=== PATIENT | female | born 1965 | race Caucasian/White ===

== ENCOUNTER → 2017-08-04 | Day surgery (SDC) | payer OTHER ==
[~2017-08-04] MED LIST: ACETAMINOPHEN 1000 MG/100 ML IV ONE; BUPIVACAINE HCL 0.5% INJ 30 ML VIAL INJ ONE; CEFAZOLIN SOD 2 GM/D5W 50ML 50 ML IV ONE; DEXAMETHASONE SOD PHOS INJ 4 MG/ML VIAL ONE; FENTANYL CITRATE/PF 100MCG/2 ML INJ ONE; KETOROLAC TROMETHAMINE 30 MG/ML VIAL ONE; LIDOCAINE HCL 2% LOCAL INJ 5 ML SDV VIAL INJ ONE; METHOCARBAMOL750 MG PO; METOPROLOL SUCC25 MG PO; MIDAZOLAM HCL 2 MG/2 ML VIAL ONE; NEOSTIGMINE 1 MG/ML 10ML VIAL ONE; ONDANSETRON HCL INJ 2 MG/ML VIAL ONE; PROGESTERONE100 MG PO; PROPOFOL IV EMULSION 10 MG/ML 20 ML VIAL ONE; SEVOFLURANE INHAL SOLN 250 ML PEN BTL ONE
--- NOTE | 2017-10-13 13:52 | Operative Report ---
DATE OF PROCEDURE: August 04, 2017 PREOPERATIVE DIAGNOSES 1. 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 2. 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 3. 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 POSTOPERATIVE DIAGNOSES 1. 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 2. 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 3. 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 PATHOLOGY: None. HEMOSTASIS: Pneumatic thigh tourniquet. ESTIMATED BLOOD LOSS: Less than 10 mL. MATERIALS: Human allograft. COMPLICATIONS: None. CONDITION: Stable. PROCEDURE IN DETAIL: Under mild sedation, the patient was brought to the operating room and placed on the operating table in the supine position. Following IV sedation, anesthesia was obtained with a general anesthetic. At this point, the left foot was scrubbed, prepped and draped in the usual aseptic manner. The pneumatic thigh tourniquet was inflated to 350 mmHg. The leg was lowered to the table. Attention was then directed to the 2nd interspace where a linear incision was made overlying the interspace. The incision was deepened via sharp and blunt dissection down to the level of the neuroma. The intermetatarsal ligament was transected. The neuroma was then isolated. It was then transected at its most dorsal, medial, lateral and plantar insertion. It was passed from the operating table and sent for pathology. Arthroplasty, 5th digit: Attention was then directed to the 5th digit where 2 semielliptical incisions were made overlying the 5th digit. A derotational osteotomy was performed. The extensor tendon was then visualized. It was then transected. The contracture at the proximal interphalangeal joint was then released. The head of the proximal phalanx was then removed. There was noted to be release of the contracture clinically. The area was then flushed with copious amounts of normal sterile saline solution. Attention was then directed to the medial aspect of the 5th MPJ where a linear incision was made overlying the exostosis. The incision was deepened down to the level of the exostosis after the capsule. Utilizing a hand rasp, this was removed. The area was then flushed with copious amounts of normal sterile saline solution. All incisions were then flushed with copious amounts of normal sterile saline solution. Human allograft was then inserted into the area of the 2nd intermetatarsal space and the exostosis of the 5th in order to prevent adhesion and promote healing of the area. The area was then closed in layers, closing the deepest layer with 3-0 Vicryl, 4-0 Vicryl and 4-0 nylon. A clean dressing was applied consisting of Adaptic ointment, 4 x 4's, Kerlix and an Tereso bandage. The tourniquet was deflated, and there was noted to be hyperemic response to all the digits. The patient tolerated the procedure and the anesthesia well without complications. He was transported to the recovery room with vital signs stable and vascular status intact to both feet. The patient will be discharged home when she meets criteria. She was given instructions to be nonweightbearing, to ice and elevate the foot while at rest, to follow up with me in the office, and to call the office if any questions, concerns or any problems arise. Job#: [id number]
== END | disposition home or self-care (01) ==
LOC: OR 08:02
PROVIDERS: ATTEND Podiatrist Foot & Ankle Surgery
DX: G57.62 Lesion of plantar nerve, left lower limb (principal); M20.42 Other hammer toe(s) (acquired), left foot; M77.52 Other enthesopathy of left foot and ankle; J45.909 Unspecified asthma, uncomplicated; I34.1 Nonrheumatic mitral (valve) prolapse
CPT/HCPCS: 28080; 28104; 28285; 88304; J1100; J1885; J2001; J2250; J2405; J2710; Q4131; 76000